=== PATIENT | female | born 1990 | race Caucasian/White ===

== ENCOUNTER 2023-03-04 19:39 | Emergency (ER) | payer MEDICAID, OTHER ==
[~2023-03-04] VITALS: Ht 119.4 cm; Wt 102.0 kg
[2023-03-04] MEDS ORDERED: ONDA-144 PO (21:29)
[2023-03-04] MEDS ORDERED: DICY10CA PO (21:29)
[2023-03-04 22:30] VITALS: BP 116/48
== END 2023-03-04 22:32 | disposition home or self-care (01) ==
LOC: ER 19:39
DX: K29.70 Gastritis, unspecified, without bleeding (principal)